=== PATIENT | female | born 1955 | race Caucasian/White ===

== ENCOUNTER → 2023-11-28 12:32 | Outpatient (REF) | payer MEDICARE, SELFPAY | LOC: HWRAD 12:32 | PROVIDERS: ATTENDING PHYSICIAN Emergency Medicine | DX: E78.00 Pure hypercholesterolemia, unspecified (principal) | CPT/HCPCS: 75571 ==

== ENCOUNTER → 2023-12-05 06:41 | Day surgery (SDC) | payer MEDICARE, SELFPAY | LOC: GI 06:41 | PROVIDERS: ATTENDING PHYSICIAN Internal Medicine Gastroenterology; FAMILY PHYSICIAN Emergency Medicine | DX: Z12.11 Encounter for screening for malignant neoplasm of colon (principal); D12.0 Benign neoplasm of cecum; Z86.010 Personal history of colon polyps | CPT/HCPCS: 45385; 88305 ==

== ENCOUNTER → 2024-04-11 14:00 | Outpatient (REF) | payer MEDICARE, SELFPAY | LOC: HWWDC 14:00 | PROVIDERS: ATTENDING PHYSICIAN Obstetrics & Gynecology Gynecology; FAMILY PHYSICIAN Emergency Medicine | DX: Z12.31 Encounter for screening mammogram for malignant neoplasm of breast (principal) | CPT/HCPCS: 77063; 77067 ==

== ENCOUNTER → 2024-06-07 13:03 | Outpatient (REF) | payer MEDICARE, SELFPAY | LOC: HWRCS 13:03 | PROVIDERS: ATTENDING PHYSICIAN Internal Medicine; FAMILY PHYSICIAN Emergency Medicine | DX: I36.1 Nonrheumatic tricuspid (valve) insufficiency (principal) | CPT/HCPCS: 93306 ==

== ENCOUNTER 2024-10-15 13:08 | Outpatient (RCR) | payer MEDICARE, SELFPAY ==
[2024-10-15 13:19] VITALS: BP 134/80
[2024-10-15] MEDS: LEQVIO 284 MG SC (13:35)
== END 2024-10-16 11:39 | disposition home or self-care (01) ==
LOC: OID 13:08
PROVIDERS: ATTENDING PHYSICIAN Internal Medicine; FAMILY PHYSICIAN Emergency Medicine
DX: E78.01 Familial hypercholesterolemia (principal); R93.1 Abnormal findings on diagnostic imaging of heart and coronary circulation
CPT/HCPCS: 96372; J1306

== ENCOUNTER 2025-01-07 12:59 | Outpatient (RCR) | payer MEDICARE, SELFPAY ==
[2025-01-07 13:26] VITALS: BP 124/60
[2025-01-07] MEDS: LEQVIO 284 MG SC (13:39)
== END 2025-01-08 08:29 | disposition home or self-care (01) ==
LOC: OID 12:59
PROVIDERS: ATTENDING PHYSICIAN Internal Medicine; FAMILY PHYSICIAN Emergency Medicine
DX: I36.1 Nonrheumatic tricuspid (valve) insufficiency (principal); E78.01 Familial hypercholesterolemia; R93.1 Abnormal findings on diagnostic imaging of heart and coronary circulation
CPT/HCPCS: 96372; J1306